=== PATIENT | female | born 1960 | race Caucasian/White ===

== ENCOUNTER → 2016-12-29 | Outpatient (CLI) | payer BC, OTHER | LOC: RAD 04:37 | DX: Z12.31 Encounter for screening mammogram for malignant neoplasm of breast (principal) ==

== ENCOUNTER → 2018-01-04 | Outpatient (CLI) | payer BC, OTHER | LOC: RAD 00:35 | DX: Z12.31 Encounter for screening mammogram for malignant neoplasm of breast (principal) ==

== ENCOUNTER → 2019-01-04 | Outpatient (CLI) | payer OTHER | LOC: RAD 13:17 | DX: Z12.31 Encounter for screening mammogram for malignant neoplasm of breast (principal) ==

== ENCOUNTER → 2020-02-21 | Outpatient (CLI) | payer OTHER | LOC: BC 12:50 | DX: Z12.31 Encounter for screening mammogram for malignant neoplasm of breast (principal) ==

== ENCOUNTER → 2021-05-14 | Outpatient (CLI) | payer OTHER | LOC: BC 03-10 11:36 | DX: Z12.31 Encounter for screening mammogram for malignant neoplasm of breast (principal) ==